=== PATIENT | male | born 1950 | race Hispanic/Latino ===

== ENCOUNTER 2018-10-31 08:58 | Emergency (ER) | payer MEDICARE, OTHER ==
[~2018-10-31 08:58] MED LIST: ASPI-1197 PO; ESOM20CA31 PO; LEVO50TA11 PO; ROSU40 PO; SERT50TA PO; VALS80TA30 PO
[2018-10-31 10:01] LABS: BASOPHILS % (AUTO) 0.9 % (0.0-5.0); EOSINOPHILS % (AUTO) 5.3 % (0.0-8.0); HEMATOCRIT 38.9 % (42-54); LYMPHOCYTES % (AUTO) 43.3 % (21.0-51.0); MEAN CORPUSCULAR HGB CONC 34.7 g/dL (32.0-36.0); MEAN CORPUSCULAR VOLUME 95.3 fL (79-99); NEUTROPHILS % (AUTO) 42.5 % (40.0-77.0); NUCLEATED RED BLOOD CELLS 0.1 % (0.0-0.19); PLATELET COUNT (AUTO) 167 K/uL (130-400); RED BLOOD CELL COUNT(AUTO) 4.08 MIL/uL (4.50-6.20); WHITE BLOOD COUNT (AUTO) 6.8 K/uL (4.8-10.8)
[2018-10-31 10:09] LABS: POTASSIUM 4.4 mmol/L (3.5-5.1)
[2018-10-31 10:10] LABS: APPEARANCE,URINE Clear (CLEAR); BILIRUBIN,URINE Negative (NEGATIVE); COLOR,URINE Yellow (YELLOW); GLUCOSE, URINE (UA) Negative (NEGATIVE); KETONES,URINE Negative (NEGATIVE); LEUKOCYTE ESTERASE ,URINE Negative (NEGATIVE); NITRATE,URINE Negative (NEGATIVE); OCCULT BLOOD,URINE Negative (NEGATIVE); PROTEIN,URINE Negative (NEGATIVE); UROBILINOGEN,URINE 0.2 mg/dL (0.2-1.0)
[2018-10-31 10:17] LABS: AMPHET/METH SCREEN,URINE NEGATIVE (NEGATIVE); BARBITURATE SCREEN, URINE NEGATIVE (NEGATIVE); BENZODIAZEPINES SCREEN,URINE NEGATIVE (NEGATIVE); CANNABINOID SCREEN,URINE NEGATIVE (NEGATIVE); COCAINE SCREEN,URINE POSITIVE (NEGATIVE); OPIATE SCREEN,URINE NEGATIVE (NEGATIVE); PHENCYCLIDINE SCREEN,URINE NEGATIVE (NEGATIVE)
[2018-10-31 10:19] LABS: ALBUMIN 3.4 g/dL (3.5-5.0); BILIRUBIN,TOTAL 0.6 mg/dL (0.2-1.0); TOTAL PROTEIN, SERUM 7.1 g/dL (6.0-8.3)
[2018-10-31 10:47] LABS: INR 0.97 (0.85-1.15); PARTIAL THROMBOPLASTIN TIME 25.9 SEC (26.3-35.5); PROTHROMBIN TIME 10.2 SEC (9.6-11.6)
[2018-10-31] MEDS ORDERED: ASPIRIN 325 MG TABLET ONE (12:05)
== END 2018-10-31 15:35 | disposition short-term general hospital (02) ==
LOC: EDH 08:58
DX: I67.82 Cerebral ischemia (principal); I10 Essential (primary) hypertension; E78.5 Hyperlipidemia, unspecified; E07.9 Disorder of thyroid, unspecified; Z87.891 Personal history of nicotine dependence
CPT/HCPCS: 36415; 70450; 71045; 80053; 80305; 81003; 82550; 83874; 84484; 85025; 85610; 85730; 93005

== ENCOUNTER → 2023-09-23 | Outpatient (CLI) | payer OTHER ==
[~2023-09-23] MED LIST changes: +AMOX1TAB16 PO; -ESOM20CA31 PO; +LEVO137C4 PO; -LEVO50TA11 PO; +LOSA100T59 PO; -SERT50TA PO; -VALS80TA30 PO; +WHEA1POW2 PO
== END | disposition home or self-care (01) ==
LOC: RAH 08:34
PROVIDERS: ATTEND Internal Medicine Cardiovascular Disease
DX: R07.9 Chest pain, unspecified (principal)
CPT/HCPCS: 71111

== ENCOUNTER 2023-10-07 13:59 | Emergency (ER) | payer OTHER, MEDICARE ==
[~2023-10-07] VITALS: Ht 165.1 cm; Wt 92.1 kg
[2023-10-07 14:25] VITALS: BP 119/86; PULSE 86; RESP 16; O2SAT 99
[2023-10-07] MEDS ORDERED: IBUP-2076 PO (15:27)
[2023-10-07] MEDS ORDERED: ACETAMINOPHEN 325 MG TAB PO ONE (15:30)
== END 2023-10-07 18:03 | disposition home or self-care (01) ==
LOC: EDH 13:59
DX: S46.911A Strain of unspecified muscle, fascia and tendon at shoulder and upper arm level, right arm, initial encounter (principal); I10 Essential (primary) hypertension; E11.9 Type 2 diabetes mellitus without complications; E78.00 Pure hypercholesterolemia, unspecified; E03.9 Hypothyroidism, unspecified; F17.200 Nicotine dependence, unspecified, uncomplicated; Z79.82 Long term (current) use of aspirin; Z79.899 Other long term (current) drug therapy; Z90.49 Acquired absence of other specified parts of digestive tract; Z98.890 Other specified postprocedural states
CPT/HCPCS: 73030

== ENCOUNTER → 2023-10-12 | Outpatient (CLI) | payer OTHER, MEDICARE ==
[~2023-10-12] MED LIST changes: +IBUP-2076 PO; +REGADENOSON 0.4 MG/5 ML PF SYG IVP ONE
== END | disposition home or self-care (01) ==
LOC: SHCH 08:18
PROVIDERS: ATTEND Internal Medicine Cardiovascular Disease
DX: R07.9 Chest pain, unspecified (principal); I45.10 Unspecified right bundle-branch block
CPT/HCPCS: 78452; 96374; 93017; J2785; A9500 ×2